=== PATIENT | male | born 1970 | race Caucasian/White ===

== ENCOUNTER 2021-11-16 20:17 | Emergency (ER) | payer BC, OTHER ==
[~2021-11-16] VITALS: Ht 180.3 cm; Wt 86.2 kg
[2021-11-16] MEDS ORDERED: ATROPINE SULF 1 MG/10ml SYR IV ONE (20:18)
[2021-11-16] MEDS ORDERED: SODIUM BICARBONATE 8.4 % INJ 50ML VIAL IV ONE (20:18)
[2021-11-16] MEDS ORDERED: EPINEPHrine HCL 1 MG/10 ML SYRG IV ONE (20:18)
[2021-11-16] MEDS ORDERED: AMIODARONE HCL (50 MG/ ML) 3 ML VIAL IV ONE (20:18)
[2021-11-16 20:30] VITALS: BP 0/0
[2021-11-16] MEDS ORDERED: ROCURONIUM 10MG/ML 10ML VIAL IV ONE (20:30)
[2021-11-16] MEDS ORDERED: ETOMIDATE (2MG/ML) 20ML VIAL IV ONE (20:30)
[2021-11-16] MEDS ORDERED: HEPARIN SODIUM (PORCINE) 5000 UNITS/ML 1ML VIAL ONE (20:58)
[2021-11-16] MEDS ORDERED: EPINEPHrine HCL 250 ML IV ONE (21:08)
[2021-11-16] MEDS ORDERED: IODIXANOL 320MG/ML 100ML BTL IV ONE (21:09)
[2021-11-16] MEDS ORDERED: LIDOCAINE 2%HCL (LOCAL ANESTH.) INJ 20ML MDV ONE (21:10)
[2021-11-16] MEDS ORDERED: ANGIOMAX 250 MG VIAL IV ONE (21:12)
[2021-11-16] MEDS ORDERED: VERAPAMIL 2.5MG/ML INJ 2ML VIAL IV ONE (21:12)
[2021-11-16] MEDS ORDERED: SODIUM CHL 0.9% 0 ML ONE (21:13)
[2021-11-16] MEDS ORDERED: ATROPINE SULF 1 MG/10ml SYR ONE (21:13)
[2021-11-16] MEDS ORDERED: MIDAZOLAM HCL 2MG/2ML 2ml VIAL (1mg/ml) ONE (21:13)
[2021-11-16] MEDS ORDERED: fentaNYL CITRATE 100 MCG/2 ML VL ONE (21:13)
[2021-11-16 21:22] LABS: Basophils # (auto) 0.2 10 ^3/uL (0-0.2); Hemoglobin 15.3 g/dL (13.5-17.5); Monocytes # (auto) 0.9 10 ^3/uL (0-1.3)
[2021-11-16 21:59] LABS: Basophils % (auto) 0.8 % (0.0-2.0); Eosinophils # (auto) 0.1 10 ^3/uL (0-0.8); Eosinophils % (auto) 0.5 % (0.0-7.0); Hematocrit 47.4 % (41.0-53.0); Lymphocytes % (auto) 30.1 % (10.0-50.0); Mean Corpuscular Hemoglobin 32.1 pg (28.0-32.0); Mean Corpuscular Hgb Conc. 32.2 g/dL (32.0-36.0); Mean Corpuscular Volume 99.7 fL (80.0-100.0); Monocytes % (auto) 3.5 % (0.0-12.0); Neutrophils # (auto) 17.3 10 ^3/uL (1.6-8.6); Neutrophils % (auto) 65.1 % (37.0-80.0); Nucleated Red Blood Cells % 0.2 %; Red Blood Cells 4.75 10^6/uL (4.5-5.90); Red Cell Distribution Width 13.2 % (11.8-14.3); White Blood Cell 26.6 10^3/uL (4.4-10.8)
== END 2021-11-16 21:24 ==
LOC: ER 20:17
DX: I46.9 Cardiac arrest, cause unspecified (principal); I21.3 ST elevation (STEMI) myocardial infarction of unspecified site
CPT/HCPCS: 36415; 83880; 84484; 85025; 93005; 99291; J0171; J0282; J1644; Q9967; 99292; J2250